=== PATIENT | male | born 1945 | race Caucasian/White ===

== ENCOUNTER 2018-07-17 17:29 | Emergency (ER) | payer MEDICARE ==
[~2018-07-17] VITALS: Ht 180.3 cm; Wt 50.0 kg
[2018-07-17 17:33] VITALS: BP 118/77; Ht 180.3 cm; Wt 50.0 kg
[2018-07-17] MEDS ORDERED: VOLTAREN75 MG PO (19:56)
[2018-07-17] MEDS ORDERED: AMOXICILLIN500 M1 PO (19:56)
== END 2018-07-17 20:40 | disposition home or self-care (01) ==
LOC: D.ER 17:29
DX: K08.89 Other specified disorders of teeth and supporting structures (principal)